=== PATIENT | female | born 1970 | race Caucasian/White ===

== ENCOUNTER 2020-04-11 20:29 | Inpatient (IN) | payer BC ==
[~2020-04-11] VITALS: Ht 147.3 cm; Wt 105.0 kg
[2020-04-11 20:41] VITALS: Ht 147.3 cm; Wt 105.0 kg
[2020-04-11 21:21] LABS: BASOPHIL % 0.4 % (0-2); PLATELET COUNT 381 x10^3mcL (130-400); RED CELL DISTRIBUTION WIDTH 13.6 % (11.5-14.5)
[2020-04-11 21:24] LABS: CALCIUM 8.5 mg/dL (8.5-10.1); CARBON DIOXIDE 26.7 mmol/L (21-32); CHLORIDE SERUM 97 mmol/L (98-107); CREATININE SERUM 0.9 mg/dL (0.6-1.0); GFR1 > 60 mL/min; GLUCOSE SERUM 105 mg/dL (74-106); POTASSIUM SERUM 3.5 mmol/L (3.5-5.1); SODIUM SERUM 134 mmol/L (136-145)
[2020-04-11 21:29] LABS: ALBUMIN 3.2 g/dL (3.4-5.0); ALKALINE PHOSPHATASE 89 U/L (46-116); ALT/SGPT 30 U/L (14-59); AST/SGOT 28 U/L (15-37); BILIRUBIN TOTAL 0.3 mg/dL (0.20-1.00); LIPASE 219 IU/L (73-393); TOTAL PROTEIN, SERUM 8.4 g/dL (6.4-8.2)
[2020-04-11] MEDS ORDERED: LISINOPRIL-HYDR1 TA2 PO (22:47)
[2020-04-11] MEDS ORDERED: FEOSOL65 M1 PO (22:47)
[2020-04-11] MEDS ORDERED: CIPRO500 MG/5 M PO (22:48)
[2020-04-11] MEDS ORDERED: METRONIDAZOLE500 M1 PO (22:48)
[2020-04-12 00:28] LABS: UA SPECIFIC GRAVITY <=1.005 (1.005-1.035); microscopic required? YES; urine erythrocyte 3+ (NEGATIVE)
[2020-04-12 01:04] VITALS: BP 107/60
[2020-04-12 05:29] VITALS: BP 103/60
[2020-04-12 07:02] LABS: BASOPHIL % 0.5 % (0-2); PLATELET COUNT 299 x10^3mcL (130-400); RED CELL DISTRIBUTION WIDTH 13.6 % (11.5-14.5)
[2020-04-12 08:30] VITALS: BP 107/60
[2020-04-12 13:57] VITALS: BP 113/71
[2020-04-12 16:49] VITALS: BP 123/62
[2020-04-12 20:50] VITALS: BP 108/64
[2020-04-13 05:55] VITALS: BP 111/64
[2020-04-13 06:45] LABS: BASOPHIL % 0.5 % (0-2); PLATELET COUNT 328 x10^3mcL (130-400); RED CELL DISTRIBUTION WIDTH 13.6 % (11.5-14.5)
[2020-04-13 07:07] LABS: ALKALINE PHOSPHATASE 65 U/L (46-116); ALT/SGPT 15 U/L (14-59); AST/SGOT 16 U/L (15-37); BILIRUBIN TOTAL 0.2 mg/dL (0.20-1.00); CALCIUM 7.8 mg/dL (8.5-10.1); CARBON DIOXIDE 26.5 mmol/L (21-32); CHLORIDE SERUM 103 mmol/L (98-107); CREATININE SERUM 0.6 mg/dL (0.6-1.0); GFR1 > 60 mL/min; GLUCOSE SERUM 114 mg/dL (74-106); MAGNESIUM 1.9 mg/dL (1.8-2.4); SODIUM SERUM 137 mmol/L (136-145); TOTAL PROTEIN, SERUM 6.7 g/dL (6.4-8.2)
[2020-04-13 07:08] LABS: ALBUMIN 2.5 g/dL (3.4-5.0)
[2020-04-13 07:58] VITALS: BP 98/48
[2020-04-13 09:36] LABS: FREE T4 1.23 ng/dL (0.76-1.46)
[2020-04-13 10:00] VITALS: BP 116/65
[2020-04-13 10:14] LABS: T3 TOTAL 1.03 ng/mL
[2020-04-13 12:10] VITALS: BP 116/65
[2020-04-13 16:27] VITALS: BP 134/72
[2020-04-13 21:05] VITALS: BP 121/67
[2020-04-14 05:28] VITALS: BP 104/50
[2020-04-14 06:32] LABS: BASOPHIL % 0.3 % (0-2); RED CELL DISTRIBUTION WIDTH 14.1 % (11.5-14.5)
[2020-04-14 06:37] LABS: PLATELET COUNT 404 x10^3mcL (130-400)
[2020-04-14 07:09] LABS: ALKALINE PHOSPHATASE 72 U/L (46-116); ALT/SGPT 21 U/L (14-59); AST/SGOT 25 U/L (15-37); BILIRUBIN TOTAL 0.2 mg/dL (0.20-1.00); CALCIUM 8.3 mg/dL (8.5-10.1); CARBON DIOXIDE 28.7 mmol/L (21-32); CHLORIDE SERUM 101 mmol/L (98-107); CREATININE SERUM 0.6 mg/dL (0.6-1.0); GFR1 > 60 mL/min; GLUCOSE SERUM 116 mg/dL (74-106); POTASSIUM SERUM 3.2 mmol/L (3.5-5.1); SODIUM SERUM 138 mmol/L (136-145); TOTAL PROTEIN, SERUM 7.4 g/dL (6.4-8.2)
[2020-04-14 07:14] LABS: ALBUMIN 2.8 g/dL (3.4-5.0)
[2020-04-14 07:56] VITALS: BP 122/79
[2020-04-14] MEDS ORDERED: MORGIDOX 1X100100 MG PO (11:24)
[2020-04-14] MEDS ORDERED: AZITHROMYCIN1 GM PO (11:25)
[2020-04-14 11:36] VITALS: BP 122/79
[2020-04-14 12:43] VITALS: BP 139/83
== END 2020-04-14 13:09 | disposition home or self-care (01) | DRG 872 ==
LOC: ED 20:29 → MU 23:16
PROVIDERS: Emergency Medicine; Hospitalist; Obstetrics & Gynecology; ADMIT Internal Medicine Pulmonary Disease; ATTEND Internal Medicine Pulmonary Disease
DX: A41.9 Sepsis, unspecified organism (principal); Z68.42 Body mass index [BMI] 45.0-49.9, adult; N70.93 Salpingitis and oophoritis, unspecified; D50.9 Iron deficiency anemia, unspecified; I10 Essential (primary) hypertension; E66.9 Obesity, unspecified; R00.0 Tachycardia, unspecified; N93.8 Other specified abnormal uterine and vaginal bleeding; Z98.51 Tubal ligation status
CPT/HCPCS: 84439; 87491; 87591; G0378; J0696; J1650; J3490; J7040; Q0092; Q9967

== ENCOUNTER 2020-05-10 10:44 | Emergency (ER) | payer BC ==
[~2020-05-10] VITALS: Ht 147.3 cm; Wt 103.0 kg
[~2020-05-10 10:44] MED LIST: AZITHROMYCIN1 GM PO; CIPRO500 MG/5 M PO; FEOSOL65 M1 PO; LISINOPRIL-HYDR1 TA2 PO; METRONIDAZOLE500 M1 PO; MORGIDOX 1X100100 MG PO
[2020-05-10 11:01] VITALS: Ht 147.3 cm; Wt 103.0 kg
[2020-05-10 11:27] LABS: BASOPHIL % 0.6 % (0-2); PLATELET COUNT 274 x10^3mcL (130-400); RED CELL DISTRIBUTION WIDTH 14.2 % (11.5-14.5)
[2020-05-10 12:00] LABS: CALCIUM 8.9 mg/dL (8.5-10.1); CARBON DIOXIDE 28.6 mmol/L (21-32); CHLORIDE SERUM 101 mmol/L (98-107); CREATININE SERUM 0.8 mg/dL (0.6-1.0); GFR1 > 60 mL/min; GLUCOSE SERUM 108 mg/dL (74-106); POTASSIUM SERUM 3.2 mmol/L (3.5-5.1); SODIUM SERUM 137 mmol/L (136-145)
[2020-05-10 12:06] LABS: ALBUMIN 3.5 g/dL (3.4-5.0); ALKALINE PHOSPHATASE 80 U/L (46-116); ALT/SGPT 35 U/L (14-59); AST/SGOT 24 U/L (15-37); BILIRUBIN TOTAL 0.32 mg/dL (0.20-1.00); TOTAL PROTEIN, SERUM 8.1 g/dL (6.4-8.2)
[2020-05-10 12:46] LABS: microscopic required? YES; urine erythrocyte 3+ (NEGATIVE)
[2020-05-10 14:31] VITALS: BP 136/85
== END 2020-05-10 14:20 | disposition home or self-care (01) ==
LOC: ED 10:44
PROVIDERS: Emergency Medicine
DX: R19.09 Other intra-abdominal and pelvic swelling, mass and lump (principal); N39.0 Urinary tract infection, site not specified; N83.209 Unspecified ovarian cyst, unspecified side; I10 Essential (primary) hypertension; Z98.890 Other specified postprocedural states
CPT/HCPCS: Q0092